=== PATIENT | male | born 1935 | race Caucasian/White ===

== ENCOUNTER 2019-11-06 13:58 | Outpatient (CLI) | payer OTHER, SELFPAY | END 2019-11-06 13:59 | disposition home or self-care (01) | LOC: ANHAUDIO 14:00 | PROVIDERS: Visit Provider Family Medicine | DX: H90.3 Sensorineural hearing loss, bilateral (principal) | CPT/HCPCS: 92557; 92567 ==

== ENCOUNTER 2019-12-30 10:02 | Outpatient (RCR) | payer OTHER, SELFPAY | END 2019-12-30 23:59 | disposition home or self-care (01) | LOC: ANHAUDIO 10:02 | DX: Z46.1 Encounter for fitting and adjustment of hearing aid (principal) | CPT/HCPCS: V5014 ==

== ENCOUNTER 2020-06-23 13:53 | Outpatient (RCR) | payer SELFPAY | END 2020-06-23 23:59 | disposition home or self-care (01) | LOC: ANHAUDIO 13:53 | DX: Z46.1 Encounter for fitting and adjustment of hearing aid (principal) | CPT/HCPCS: 92593 ==

== ENCOUNTER 2020-10-27 13:39 | Outpatient (RCR) | payer SELFPAY | END 2020-10-27 23:59 | disposition home or self-care (01) | LOC: ANHAUDIO 13:39 | PROVIDERS: PCP Family Medicine; Visit Provider Family Medicine | DX: Z46.1 Encounter for fitting and adjustment of hearing aid (principal) | CPT/HCPCS: 99199; V5014 ==

== ENCOUNTER 2021-07-13 08:25 | Outpatient (CLI) | payer MEDICARE, SELFPAY | END 2021-07-13 08:26 | disposition home or self-care (01) | PROVIDERS: PCP Family Medicine | DX: M46.24 Osteomyelitis of vertebra, thoracic region (principal) | CPT/HCPCS: 99199 ==

== ENCOUNTER 2021-09-14 13:03 | Outpatient (CLI) | payer MEDICARE, SELFPAY | END 2021-09-14 13:04 | disposition home or self-care (01) | PROVIDERS: PCP Family Medicine | DX: Z01.110 Encounter for hearing examination following failed hearing screening (principal); H90.3 Sensorineural hearing loss, bilateral | CPT/HCPCS: 92557; 92567 ==